=== PATIENT | female | born 1990 | race Caucasian/White ===

== ENCOUNTER → 2018-09-08 | Outpatient (REF) | payer OTHER | LOC: M SFHCLERA 15:07 | DX: J02.9 Acute pharyngitis, unspecified (principal) ==

== ENCOUNTER → 2019-06-08 | Outpatient (CLI) | payer OTHER ==
[~2019-06-08] MED LIST: E-Z-GAS II EFFERVESCENT PACKET (SODIUM BICARB./CITRIC ACID/SIMETHICONE) As Ordered ONE; E-Z-HD 98% w/w 340GM SUSP BTL As Ordered ONE; E-Z-PAQUE 96% w/w SUSP 176GM BTL As Ordered ONE
--- NOTE | 2019-06-12 17:27 | REP ---
Upper GI air contrast The procedure was performed under the direct supervision of Dr. Cam. The images were reviewed with Dr. Cam The information technology specialist film shows no organomegaly or pathological masses. The intestinal gas pattern is non-specific. Liquid barium and gas producing crystals were given in the erect position as well as liquid barium in the prone oblique position in order to perform a double contrast upper GI examination. The oral and pharyngeal stages of deglutition are unremarkable. Esophageal transport is prompt and efficient and there is no esophagitis, stricture or mucosal ring. There is a small, sliding type hiatal hernia. Gastroesophageal reflux is not demonstrated on this examination. The stomach avina are normally outlined . The rugal folds are smooth and regular. There is no gastritis neoplasm or ulcer disease. The duodenal avina are normally outlined . The mucosal folds are smooth and regular. There is no duodenitis pancreatitis peptic ulcer disease or neoplasm. The visualized portion of the proximal small bowel appears normal in course and caliber. Impression: There is a small sliding-type hiatal hernia. Otherwise, unremarkable double contrast upper GI examination. 1.6 minutes of fluoro time was utilized for this procedure. Reviewed by ALLYSSA Obrien 06/08/2019 03:39 P Electronically Signed by Olaf Cam MD 06/12/2019 05:18 P
== END ==
LOC: M RAD 08:27
PROVIDERS: ATTEND Family Medicine
DX: K44.9 Diaphragmatic hernia without obstruction or gangrene (principal)

== ENCOUNTER → 2020-07-17 | Outpatient (CLI) | payer OTHER | LOC: M SFHCWAGY 14:15 | PROVIDERS: ATTEND Advanced Practice Midwife | DX: Z12.4 Encounter for screening for malignant neoplasm of cervix (principal) ==

== ENCOUNTER → 2020-07-17 | Outpatient (CLI) | payer OTHER ==
[2020-07-17 18:43] LABS: FREE T4 1.04 NG/DL (0.76-1.46)
[2020-07-17 18:45] LABS: TESTOSTERONE 43 NG/DL (14-76)
[2020-07-17 18:46] LABS: FOLLICLE STIMULATING HORMONE 5.5 mIU/mL; LUTEINIZING HORMONE 9.3 mIU/mL
[2020-07-17 18:49] LABS: HCG, SERUM QUALITATIVE NEGATIVE (NEGATIVE)
== END ==
LOC: M PLALAB 14:54
PROVIDERS: ATTEND Advanced Practice Midwife
DX: E28.2 Polycystic ovarian syndrome (principal)

== ENCOUNTER → 2020-07-23 | Outpatient (CLI) | payer OTHER ==
[2020-07-23 12:58] LABS: PROLACTIN 7.6 NG/ML
[2020-07-29 23:07] LABS: INSULIN FREE 15 uU/mL (.); INSULIN TOTAL2 15 uU/mL (.)
== END ==
LOC: M WUC 09:47
PROVIDERS: ATTEND Advanced Practice Midwife
DX: E28.2 Polycystic ovarian syndrome (principal)

== ENCOUNTER → 2021-05-21 | Outpatient (CLI) | payer OTHER ==
--- NOTE | 2021-05-21 14:11 | REP ---
INDICATION: PAIN COMPARISON: None. TECHNIQUE: AP, lateral, bilateral oblique views right and left foot. FINDINGS: Right and left foot demonstrate moderate bilateral hallux valgus deformity. The osseous structures and joint spaces are otherwise essentially symmetric and age-appropriate. No evidence for acute or healed injury. No further overt arthritic degenerative changes. Surrounding soft tissues without subcutaneous emphysema or foreign body. IMPRESSION: Bilateral hallux valgus deformity suggested. Otherwise essentially age-appropriate symmetric foot radiograph series. <Electronically signed by Chi Silveira > 05/21/21 [id number]
[2021-05-21 19:52] LABS: ALBUMIN 4.1 GM/DL (3.2-5.2); ALT/SGPT 43 U/L (12-78); BILIRUBIN,TOTAL 0.2 MG/DL (0.2-1.0); BLOOD UREA NITROGEN 9 MG/DL (7-18); CALCIUM LEVEL 9.2 MG/DL (8.5-10.1); CARBON DIOXIDE LEVEL 28 MEQ/L (21-32); CHLORIDE LEVEL 105 MEQ/L (98-107); CREATININE FOR GFR 0.51 MG/DL (0.55-1.30); GLOMERULAR FILTRATION RATE > 60.0 (>60); GLUCOSE, FASTING 92 MG/DL (70-100); POTASSIUM SERUM 4.4 MEQ/L (3.5-5.1); SODIUM LEVEL 139 MEQ/L (136-145)
[2021-05-21 19:55] LABS: BASO # 0.1 10^3/uL (0.0-0.2); BASO % 0.5 % (0.0-1.0); EOS # 0.3 10^3/uL (0.0-0.5); EOS % 2.8 % (0.0-3.0); HEMATOCRIT 38.3 % (36.0-47.0); HEMOGLOBIN 12.4 g/dl (12.0-15.5); LYMPH # 2.1 10^3/uL (1.5-5.0); LYMPH % 22.8 % (24.0-44.0); MEAN CORPUSCULAR HEMOGLOBIN 28.7 pg (27.0-33.0); MEAN CORPUSCULAR HGB CONC 32.4 g/dl (32.0-36.5); MEAN CORPUSCULAR VOLUME 88.7 fl (80.0-96.0); MONO # 0.7 10^3/uL (0.0-0.8); MONO % 7.4 % (2.0-8.0); NEUTROPHILS # 6.2 10^3/uL (1.5-8.5); NEUTROPHILS % 66.1 % (36.0-66.0); PLATELET COUNT, AUTOMATED 453 10^3/uL (150-450); RED BLOOD COUNT 4.32 10^6/uL (4.00-5.40); WHITE BLOOD COUNT 9.4 10^3/uL (4.0-10.0)
== END ==
LOC: M WUC 12:57
PROVIDERS: ATTEND Physician Assistant
DX: M25.579 Pain in unspecified ankle and joints of unspecified foot (principal); R60.9 Edema, unspecified

== ENCOUNTER → 2022-11-29 | Outpatient (CLI) | payer OTHER ==
[2022-11-29 07:32] LABS: BASO # 0.1 10^3/uL (0.0-0.2); BASO % 0.8 % (0.0-1.0); EOS # 0.2 10^3/uL (0.0-0.5); EOS % 2.8 % (0.0-3.0); HEMATOCRIT 41.2 % (36.0-47.0); HEMOGLOBIN 13.6 g/dl (12.0-15.5); LYMPH # 1.9 10^3/uL (1.5-5.0); LYMPH % 24.8 % (24.0-44.0); MEAN CORPUSCULAR HEMOGLOBIN 28.8 pg (27.0-33.0); MEAN CORPUSCULAR VOLUME 87.3 fl (80.0-96.0); MONO # 0.6 10^3/uL (0.0-0.8); MONO % 8.1 % (2.0-8.0); NEUTROPHILS # 4.8 10^3/uL (1.5-8.5); NEUTROPHILS % 63.2 % (36.0-66.0); PLATELET COUNT, AUTOMATED 381 10^3/uL (150-450); RED BLOOD COUNT 4.72 10^6/uL (4.00-5.40); WHITE BLOOD COUNT 7.6 10^3/uL (4.0-10.0)
[2022-11-29 07:39] LABS: HEMOGLOBIN A1c 5.2 % (4.0-6.0)
[2022-11-29 07:59] LABS: ALBUMIN 4.2 G/DL (3.2-5.2); ALKALINE PHOSPHATASE 82 U/L (46-116); ALT/SGPT 29 U/L (7.0-40); AST/SGOT 22 U/L (<34); BILIRUBIN,TOTAL 0.8 MG/DL (0.3-1.2); BLOOD UREA NITROGEN 12 MG/DL (9-23); CALCIUM LEVEL 8.8 MG/DL (8.5-10.1); CARBON DIOXIDE LEVEL 27 MMOL/L (20-31); CHLORIDE LEVEL 103 MMOL/L (98-107); CHOLESTEROL LEVEL 198 MG/DL (<200); CHOLESTEROL RISK RATIO 4.85 (<5); CREATININE FOR GFR 0.58 MG/DL (0.55-1.30); GLOMERULAR FILTRATION RATE > 60.0 (>60); GLUCOSE, FASTING 95 MG/DL (60-100); HDL CHOLESTEROL 40.8 MG/DL (>40); NON-HDL-C 157 MG/DL; POTASSIUM SERUM 4.2 MMOL/L (3.5-5.1); SODIUM LEVEL 137 MMOL/L (136-145); TOTAL PROTEIN 7.7 G/DL (5.7-8.2); TRIGLYCERIDES LEVEL 141 MG/DL (<150)
[2022-11-29 08:00] LABS: FOLLICLE STIMULATING HORMONE 5.6 mIU/ML; THYROID STIMULATING HORMONE 2.818 uIU/ML (0.55-4.78); TOTAL 25(OH) VITAMIN D 12.4 NG/ML (20.0-100.0)
[2022-11-29 08:01] LABS: LUTEINIZING HORMONE 12.2 mIU/ML; PROLACTIN 11.22 NG/ML
[2022-11-29 08:02] LABS: FREE T4 1.17 NG/DL (0.89-1.76)
[2022-11-30 16:08] LABS: TESTOSTERONE FREE (DIRECT) 3.7 pg/mL (0.0-4.2)
== END ==
LOC: M LAB 07:03
PROVIDERS: ATTEND Nurse Practitioner Family
DX: R53.83 Other fatigue (principal)

== ENCOUNTER → 2022-12-17 | Outpatient (REF) | payer OTHER | LOC: M LAB REF 13:37 | PROVIDERS: ATTEND Nurse Practitioner Family | DX: Z01.419 Encounter for gynecological examination (general) (routine) without abnormal findings (principal) ==

== ENCOUNTER → 2023-04-07 | Outpatient (REF) | payer OTHER | LOC: M LABWUC 12:56 | PROVIDERS: ATTEND Nurse Practitioner Family | DX: E55.9 Vitamin D deficiency, unspecified (principal) ==

== ENCOUNTER → 2023-08-29 | Outpatient (REF) | payer OTHER ==
[2023-08-29 19:16] LABS: BASO # 0.1 10^3/uL (0.0-0.2); BASO % 0.5 % (0.0-1.0); EOS # 0.1 10^3/uL (0.0-0.5); HEMATOCRIT 40.1 % (36.0-47.0); HEMOGLOBIN 13.2 g/dl (12.0-15.5); LYMPH # 1.6 10^3/uL (1.5-5.0); LYMPH % 12.1 % (24.0-44.0); MEAN CORPUSCULAR HGB CONC 32.9 g/dl (32.0-36.5); MEAN CORPUSCULAR VOLUME 88.1 fl (80.0-96.0); MONO # 0.5 10^3/uL (0.0-0.8); MONO % 3.6 % (2.0-8.0); NEUTROPHILS # 10.9 10^3/uL (1.5-8.5); NEUTROPHILS % 82.3 % (36.0-66.0); PLATELET COUNT, AUTOMATED 392 10^3/uL (150-450); RED BLOOD COUNT 4.55 10^6/uL (4.00-5.40); WHITE BLOOD COUNT 13.2 10^3/uL (4.0-10.0)
[2023-08-29 19:42] LABS: ALBUMIN 3.7 G/DL (3.2-5.2); ALKALINE PHOSPHATASE 62 U/L (46-116); ALT/SGPT 15 U/L (7.0-40); AST/SGOT 15 U/L (<34); BILIRUBIN,TOTAL 0.2 MG/DL (0.3-1.2); BLOOD UREA NITROGEN 6 MG/DL (9-23); CALCIUM LEVEL 9.4 MG/DL (8.5-10.1); CARBON DIOXIDE LEVEL 24 MMOL/L (20-31); CHLORIDE LEVEL 103 MMOL/L (98-107); CREATININE FOR GFR 0.44 MG/DL (0.55-1.30); GLOMERULAR FILTRATION RATE > 60.0 (>60); GLUCOSE, FASTING 147 MG/DL (60-100); POTASSIUM SERUM 3.7 MMOL/L (3.5-5.1); SODIUM LEVEL 136 MMOL/L (136-145); TOTAL PROTEIN 7.1 G/DL (5.7-8.2)
[2023-08-29 19:54] LABS: HCG, SERUM QUANTITATIVE 84092.2 MIU/ML (<4.2)
== END ==
LOC: M LAB REF 17:05
PROVIDERS: ATTEND Registered Nurse
DX: R10.30 Lower abdominal pain, unspecified (principal); N91.2 Amenorrhea, unspecified

== ENCOUNTER → 2023-09-09 | Outpatient (CLI) | payer OTHER ==
[2023-09-09 14:54] LABS: HEMATOCRIT 38.2 % (36.0-47.0); HEMOGLOBIN 13.1 g/dl (12.0-15.5); MEAN CORPUSCULAR HEMOGLOBIN 29.4 pg (27.0-33.0); MEAN CORPUSCULAR HGB CONC 34.3 g/dl (32.0-36.5); MEAN CORPUSCULAR VOLUME 85.8 fl (80.0-96.0); PLATELET COUNT, AUTOMATED 365 10^3/uL (150-450); RED BLOOD COUNT 4.45 10^6/uL (4.00-5.40); WHITE BLOOD COUNT 12.3 10^3/uL (4.0-10.0)
[2023-09-09 15:55] LABS: HIV 1&2 SCREEN NEGATIVE (NEGATIVE)
[2023-09-09 16:03] LABS: HEPATITIS C VIRUS ABY INDEX 0.04 INDEX (<0.8)
[2023-09-09 16:25] LABS: GC DNA AMPLIFICATION NEGATIVE (NEGATIVE)
== END ==
LOC: M WUC 10:41
PROVIDERS: ATTEND Advanced Practice Midwife
DX: Z36.9 Encounter for antenatal screening, unspecified (principal)

== ENCOUNTER → 2023-10-14 | Outpatient (CLI) | payer OTHER | LOC: M RAD 13:33 | PROVIDERS: ATTEND Advanced Practice Midwife | DX: Z34.02 Encounter for supervision of normal first pregnancy, second trimester (principal) ==

== ENCOUNTER → 2023-10-17 | Outpatient (CLI) | payer OTHER ==
[2023-10-17 18:13] LABS: URIC ACID 4.1 MG/DL (3.1-7.8)
[2023-10-17 18:15] LABS: LDH LACTATE DEHYDROGENASE 191 U/L (120-246)
[2023-10-17 18:16] LABS: ALT/SGPT 19 U/L (7.0-40); AST/SGOT 11 U/L (<34); BILIRUBIN,TOTAL 0.2 MG/DL (0.3-1.2); CREATININE FOR GFR 0.38 MG/DL (0.55-1.30); CREATININE,RANDOM URINE 100.1 MG/DL; GLOMERULAR FILTRATION RATE > 60.0 (>60)
== END ==
LOC: M WUC 12:39
PROVIDERS: ATTEND Obstetrics & Gynecology
DX: O16.9 Unspecified maternal hypertension, unspecified trimester (principal)

== ENCOUNTER → 2023-11-21 | Outpatient (CLI) | payer OTHER ==
[2023-11-21 09:08] LABS: HEMATOCRIT 35.4 % (36.0-47.0); HEMOGLOBIN 11.8 g/dl (12.0-15.5); MEAN CORPUSCULAR HEMOGLOBIN 29.3 pg (27.0-33.0); MEAN CORPUSCULAR HGB CONC 33.3 g/dl (32.0-36.5); MEAN CORPUSCULAR VOLUME 87.8 fl (80.0-96.0); PLATELET COUNT, AUTOMATED 334 10^3/uL (150-450); RED BLOOD COUNT 4.03 10^6/uL (4.00-5.40)
[2023-11-21 10:03] LABS: CHLAMYDIA DNA AMPLIFICATION NEGATIVE (NEGATIVE); GC DNA AMPLIFICATION NEGATIVE (NEGATIVE)
== END ==
LOC: M LAB 07:15
PROVIDERS: ATTEND Obstetrics & Gynecology
DX: O10.012 Pre-existing essential hypertension complicating pregnancy, second trimester (principal)

== ENCOUNTER → 2024-01-13 | Outpatient (CLI) | payer OTHER | LOC: M WHC 15:21 | PROVIDERS: ATTEND Obstetrics & Gynecology | DX: O10.012 Pre-existing essential hypertension complicating pregnancy, second trimester (principal) ==

== ENCOUNTER → 2024-01-19 | Outpatient (CLI) | payer OTHER ==
[2024-01-19 15:44] LABS: HEMATOCRIT 37.4 % (36.0-47.0); HEMOGLOBIN 12.4 g/dl (12.0-15.5); MEAN CORPUSCULAR HEMOGLOBIN 28.9 pg (27.0-33.0); MEAN CORPUSCULAR HGB CONC 33.2 g/dl (32.0-36.5); MEAN CORPUSCULAR VOLUME 87.2 fl (80.0-96.0); PLATELET COUNT, AUTOMATED 297 10^3/uL (150-450); RED BLOOD COUNT 4.29 10^6/uL (4.00-5.40); WHITE BLOOD COUNT 9.9 10^3/uL (4.0-10.0)
[2024-01-19 16:13] LABS: LDH LACTATE DEHYDROGENASE 163 U/L (120-246)
[2024-01-19 16:14] LABS: ALT/SGPT 15 U/L (7.0-40); AST/SGOT 11 U/L (<34); BILIRUBIN,TOTAL 0.2 MG/DL (0.3-1.2); CREATININE FOR GFR 0.41 MG/DL (0.55-1.30); GLOMERULAR FILTRATION RATE > 60.0 (>60)
[2024-01-19 16:27] LABS: TOTAL PROTEIN,RANDOM URINE 9.5 MG/DL (0.0-14.0)
[2024-01-19 16:32] LABS: CREATININE,RANDOM URINE 40.2 MG/DL
== END ==
LOC: M PLALAB 14:20
PROVIDERS: ATTEND Advanced Practice Midwife
DX: O10.013 Pre-existing essential hypertension complicating pregnancy, third trimester (principal)

== ENCOUNTER → 2024-02-09 | Outpatient (REF) | payer OTHER, MEDICAID | LOC: M PLALAB 09:20 | PROVIDERS: ATTEND Advanced Practice Midwife | DX: Z34.93 Encounter for supervision of normal pregnancy, unspecified, third trimester (principal) ==

== ENCOUNTER → 2024-02-09 | Outpatient (CLI) | payer OTHER, MEDICAID | LOC: M WHC 13:29 | PROVIDERS: ATTEND Advanced Practice Midwife | DX: O10.913 Unspecified pre-existing hypertension complicating pregnancy, third trimester (principal) ==

== ENCOUNTER → 2025-07-31 | Outpatient (CLI) | payer OTHER ==
[~2025-07-31] MED LIST changes: +COLA100C5 PO; -E-Z-GAS II EFFERVESCENT PACKET (SODIUM BICARB./CITRIC ACID/SIMETHICONE) As Ordered ONE; -E-Z-HD 98% w/w 340GM SUSP BTL As Ordered ONE; -E-Z-PAQUE 96% w/w SUSP 176GM BTL As Ordered ONE; +IBUP80TA PO; +LABE100T40 PO; +OXYC1TAB23 PO; +PRENTAB9 PO
[2025-07-31 14:17] LABS: ALT/SGPT 40 U/L (7.0-40); AST/SGOT 20 U/L (<34); BASO # 0.1 10^3/uL (0.0-0.2); BASO % 0.9 % (0.0-1.0); CALCIUM LEVEL 9.3 MG/DL (8.5-10.1); CARBON DIOXIDE LEVEL 28 MMOL/L (20-31); CHLORIDE LEVEL 103 MMOL/L (98-107); CHOLESTEROL LEVEL 227 MG/DL (<200); CHOLESTEROL RISK RATIO 5.01 (<5); CREATININE FOR GFR 0.64 MG/DL (0.55-1.30); EOS # 0.2 10^3/uL (0.0-0.5); EOS % 3.1 % (0.0-3.0); GLOMERULAR FILTRATION RATE > 90.0 (>60); LDL CHOLESTEROL 144.7 MG/DL (<100); LYMPH # 1.9 10^3/uL (1.5-5.0); LYMPH % 25.3 % (24.0-44.0); MONO # 0.6 10^3/uL (0.0-0.8); MONO % 8.1 % (2.0-8.0); NEUTROPHILS # 4.7 10^3/uL (1.5-8.5); NEUTROPHILS % 62.2 % (36.0-66.0); NON-HDL-C 181.7 MG/DL; PLATELET COUNT, AUTOMATED 380 10^3/uL (150-450); POTASSIUM SERUM 4.2 MMOL/L (3.5-5.1); SODIUM LEVEL 139 MMOL/L (136-145); TRIGLYCERIDES LEVEL 185 MG/DL (<150)
[2025-07-31 14:18] LABS: FREE T4 1.25 NG/DL (0.89-1.76)
[2025-07-31 15:54] LABS: ESTIMATED AVERAGE GLUCOSE 111.0 MG/DL (60-110)
== END ==
LOC: M WUC 09:13
PROVIDERS: ATTEND Registered Nurse
DX: I10 Essential (primary) hypertension (principal)

== ENCOUNTER → 2025-09-09 | Outpatient (CLI) | payer OTHER ==
[2025-09-09 13:07] LABS: LUTEINIZING HORMONE 5.8 mIU/ML; PROGESTERONE 10.56 NG/ML
[2025-09-09 13:08] LABS: ESTRADIOL 131.1 PG/ML
== END ==
LOC: M WUC 09:27
PROVIDERS: ATTEND Registered Nurse
DX: N92.6 Irregular menstruation, unspecified (principal)